=== PATIENT | male | born 1990 | race Hispanic/Latino ===

== ENCOUNTER 2018-08-15 01:01 | Emergency (ER) | payer SELFPAY ==
[2018-08-15 01:48] LABS: CHLORIDE,CL 102 mmol/L (98-107); SODIUM,NA 139 mmol/L (136-145)
--- NOTE | 2018-08-15 02:11 | EDM.PDOC ---
ED HPI GENERAL MEDICAL PROBLEM - General Chief Complaint: Abdominal Pain Stated Complaint: left lower quadrant abd pain Time Seen by Provider: 08/15/18 01:26 Source of Information: Reports: Patient History Limitations: Reports: No Limitations - History of Present Illness INITIAL COMMENTS - FREE TEXT/NARRATIVE: Patient driven to ER with complaint of left lower abdominal pain that started around 10:30pm. Emesis x1. Had small hard bowel movement earlier today. No fevers/chills. Eating and drinking well all day. No one else sick at home. Had episode of right sided abdominal pain a few weeks ago that was sharp/self- limited. It went away. Denies history of constipation. No change in pain with urination. Denies hematuria/frequency/UTI complaints. Pain is better when he lays down. Denies being aware of a hernia being present. Pain does not radiate. At its worst the pain was around 9/10. It has improved on its own and is now 3 / 10. Has not taken any medication. Left Lower Abdomen Pain Score (Numeric/FACES): 9 - Related Data Allergies Allergy/AdvReac Type Severity Reaction Status Date / Time No Known Allergies Allergy Verified 08/15/18 01:09 Home Meds: Home Meds . [No Known Home Meds] 08/15/18 [History] Past Medical History - Past Health History Medical/Surgical History: Denies Medical/Surgical History ED ROS GENERAL - Review of Systems Review Of Systems: ROS reveals no pertinent complaints other than HPI. ED EXAM, GI/ABD - Physical Exam Exam: See Below Exam Limited By: No Limitations General Appearance: Alert, WD/WN, No Apparent Distress Eyes: Bilateral: Normal Appearance, EOMI Nose: Normal Inspection Throat/Mouth: Normal Inspection, Normal Voice, No Airway Compromise Head: Atraumatic, Normocephalic Neck: Supple, Non-Tender Respiratory/Chest: No Respiratory Distress, Lungs Clear, Normal Breath Sounds, No Accessory Muscle Use, Chest Non-Tender Cardiovascular: Normal Peripheral Pulses, Regular Rate, Rhythm, No Murmur GI/Abdominal Exam: Soft, No Distention, Tender (focally tender LLQ, abdomen otherwise non-tender with palpation), Abnormal Bowel Sounds (decreased bowel sounds throughout abdomen). No: Guarding, Rigid, Rebound, Hernia, Mass (Male) Exam: Deferred Rectal (Males) Exam: Deferred Back Exam: No: CVA Tenderness (L), CVA Tenderness (R), Muscle Spasm, Paraspinal Tenderness, Vertebral Tenderness Extremities: Normal Inspection, Normal Range of Motion, Non-Tender, No Pedal Edema, Normal Capillary Refill Neurological: Alert, Oriented, Normal Cognition, Normal Gait, No Motor/Sensory Deficits Psychiatric: Normal Affect, Normal Mood Skin Exam: Warm, Dry, Intact, Normal Color Course - Vital Signs Last Recorded V/S: Last Vital Signs Temp 37.3 C 08/15/18 01:05 Pulse 63 08/15/18 01:26 Resp 19 08/15/18 01:26 BP 129/79 08/15/18 01:26 Pulse Ox 96 08/15/18 01:26 - Orders/Labs/Meds Orders: Active Orders 24 hr Category Date Time Status Abdomen 2V AP Flat Upright [CR] Stat Exams 08/15/18 01:09 Taken UA W/MICROSCOPIC [URIN] Stat Lab 08/15/18 01:08 Ordered Labs: Laboratory Tests 08/15/18 08/15/18 Range/Units 01:20 01:20 WBC 14.9 H (4.0-10.2) K/uL RBC 5.69 H (4.33-5.41) M/uL Hgb 16.7 (13.1-16.8) g/dL Hct 47.6 (39.0-49.0) % MCV 83.7 L (84.0-98.0) fL MCH 29.3 (28.2-33.3) pg MCHC 35.1 (31.7-36.0) g/dL RDW 13.1 (11.2-14.1) % Plt Count 192 (150-350) K/uL Neut % (Auto) 86.0 H (45.0-80.0) % Lymph % (Auto) 8.4 L (10.0-50.0) % [place] % (Auto) 5.3 (2.0-14.0) % Eos % (Auto) 0.2 (0.0-5.0) % Baso % (Auto) 0.1 (0.0-2.0) % Neut # (Auto) 12.77 H (1.40-7.00) K/uL Lymph # (Auto) 1.25 (0.50-3.50) K/uL [place] # (Auto) 0.79 (0.00-1.00) K/uL Eos # (Auto) 0.03 (0.00-0.50) K/uL Baso # (Auto) 0.02 (0.00-0.20) K/uL Sodium 139 (136-145) mmol/L Potassium 4.4 (3.5-5.1) mmol/L Chloride 102 (98-107) mmol/L Carbon Dioxide 23.8 (21.0-32.0) mmol/L BUN 15 (7-18) mg/dL Creatinine 0.86 (0.51-1.17) mg/dL Est Cr Clr Drug Dosing 112.23 mL/min Estimated GFR (MDRD) > 60 mL/min Glucose 159 H (74-106) mg/dL Calcium 9.3 (8.5-10.1) mg/dL Total Bilirubin 0.5 (0.2-1.0) mg/dL AST 28 (15-37) U/L ALT 48 (12-78) U/L Alkaline Phosphatase 110 (46-116) IU/L Total Protein 8.1 (6.4-8.2) g/dL Albumin 4.3 (3.4-5.0) g/dL Meds: Medications Discontinued Medications Generic Name Dose Route Start Last Admin Trade Name Freq PRN Reason Stop Dose Admin Ondansetron HCl 4 mg 08/15/18 02:11 Zofran Odt PO 08/15/18 02:12 ONETIME ONE - Radiology Interpretation Free Text/Narrative:: abdominal film overall unremarkable - Re-Assessments/Exams Free Text/Narrative Re-Assessment/Exam: 08/15/18 02:25 Patient stated that he was feeling better during exam. No further emesis. No fevers. WBC elevated as was blood sugar. Unable to void. 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 Gastroenteritis is quite possible. Given the small earlier stool and history of right sided pain not that long ago, constipation is also possible as it too can cause emesis/cramping with pain in varying locations. On xray patient did not appear to have a large stool burden however. Kidney stones/diverticulitis were also possible etiologies that were discussed. CT scan would be able to help identify potential cause of pain. Patient does not have insurance and wished to not have a scan this visit, particularly since he was feeling better. He wanted to go home and see how he felt over the next few hours/days and return if needed. Willing to take UA sample cup home and return with UA specimen when able to void. Recommended patient to have blood sugar rechecked sometime soon given the elevation noted tonmanny. Departure - Departure Time of Disposition: 02:09 Disposition: Home, Self-Care 01 Condition: Good Clinical Impression: Abdominal pain Qualifiers: Abdominal location: left lower quadrant Qualified Code(s): R10.32 - Left lower quadrant pain - Discharge Information *PRESCRIPTION DRUG MONITORING PROGRAM REVIEWED*: Not Applicable *COPY OF PRESCRIPTION DRUG MONITORING REPORT IN PATIENT COY: Not Applicable Instructions: Viral Gastroenteritis, Adult, [id number], Abdominal Pain, Adult , [id number] Forms: ED Department Discharge Additional Instructions: As discussed, it is uncertain what exactly caused mac's discomfort. It could be a viral infection, as they can cause cramping/nausea/vomiting and also diarrhea. It would be good to provide a urine specimen to make certain there is no urinary tract infection as that can cause abdominal pain. Constipation can cause intermittent pain that can move around (given that the last episode of pain was on the right) and also nausea. Kidney stones can cause pain and nausea. Diverticulitis is an infection that can also cause similar issues. See how the pain behaves over the next 24-48 hours. Does it go away? Does it start to act like gastroenteritis (viral infection) with episodes of vomiting and diarrhea? If it does, that usually goes away within 24-48 hours. If you start to develop fevers and worsening pain in general, it is best to get rechecked and consider having the CT scan that was discussed mac. A CT can look for kidney stones, diverticulitis, and some other things. Follow up as needed over the next few days if you have continued problems. Recommend a bland diet in the meantime while things get sorted out. - My Orders Last 24 Hours: My Active Orders 08/15/18 01:08 UA W/MICROSCOPIC [URIN] Stat 08/15/18 01:09 Abdomen 2V AP Flat Upright [CR] Stat - Assessment/Plan Last 24 Hours: My Active Orders 08/15/18 01:08 UA W/MICROSCOPIC [URIN] Stat 08/15/18 01:09 Abdomen 2V AP Flat Upright [CR] Stat
[2018-08-15] MEDS: Ondansetron 4 MG Tab.DIS PO ONE (02:22)
== END 2018-08-15 02:40 | disposition home or self-care (01) ==
LOC: LL.ED 01:01
DX: R10.32 Left lower quadrant pain (principal)
CPT/HCPCS: 36415; 74019; 80053; 85025; 99284; A9270